=== PATIENT | female | born 1965 | race Caucasian/White ===

== ENCOUNTER 2017-04-25 19:53 | Inpatient (IN) | payer MEDICAID ==
--- NOTE | 2017-04-25 21:27 | ED ---
General Adult HPI - General Chief complaint: Psychiatric Symptoms Stated complaint: Mental Health Time Seen by Provider: 04/25/17 20:25 Source: police, RN notes reviewed, old records reviewed Mode of arrival: ambulatory Limitations: no limitations - History of Present Illness Initial comments: This is a 52-year-old female here for evaluation of mental health. Patient brought in under petition for psychiatric evaluation. - Related Data Home Medications Medication Instructions Recorded Confirmed Ibuprofen [Motrin] 200 - 400 mg PO Q6HR PRN 04/25/17 04/25/17 Metoprolol Succinate (ER) [Toprol 50 mg PO DAILY 04/25/17 04/25/17 XL] Previous Rx's Medication Instructions Recorded Melatonin 5 mg PO HS #30 tab 04/27/17 PARoxetine [Paxil] 10 mg PO DAILY #14 tab 04/27/17 Allergies Allergy/AdvReac Type Severity Reaction Status Date / Time clarithromycin [From Biaxin] Allergy Rash/Hives Verified 04/25/17 20:58 albuterol AdvReac AGITATION Verified 04/25/17 20:58 fluoxetine [From Prozac] AdvReac AGITATION Verified 04/25/17 20:58 nifedipine [From Procardia] AdvReac tachycardia Verified 04/25/17 20:58 Review of Systems ROS Statement: Those systems with pertinent positive or pertinent negative responses have been documented in the HPI. ROS Other: All systems not noted in ROS Statement are negative. Past Medical History Additional Past Medical History / Comment(s): tachycardia History of Any Multi-Drug Resistant Organisms: None Reported Past Surgical History: Section, Hysterectomy Past Psychological History: Anxiety Smoking Status: Current some day smoker Past Alcohol Use History: Occasional Past Drug Use History: None Reported - Past Family History Father Additional Family Medical History / Comment(s): Father at age 63 due to metastatic lung cancer. Mother Additional Family Medical History / Comment(s): Mother at age 85 with history of diabetes, coronary artery disease, Alzheimer's dementia. Brother(s) Additional Family Medical History / Comment(s): Patient has 4 brothers with history of hypothyroidism, diabetes and osteoarthritis. Sister(s) Additional Family Medical History / Comment(s): Patient has one sister with history of diabetes. Patient has 1 son and 1 daughter with no major medical problems. General Exam Limitations: no limitations General appearance: alert, in no apparent distress Head exam: Present: atraumatic, normocephalic, normal inspection Eye exam: Present: normal appearance, PERRL, EOMI. Absent: scleral icterus, conjunctival injection, periorbital swelling ENT exam: Present: normal exam, mucous membranes moist Neck exam: Present: normal inspection. Absent: tenderness, meningismus, lymphadenopathy Respiratory exam: Present: normal lung sounds bilaterally. Absent: respiratory distress, wheezes, rales, rhonchi, stridor Cardiovascular Exam: Present: regular rate, normal rhythm, normal heart sounds. Absent: systolic murmur, diastolic murmur, rubs, gallop, clicks GI/Abdominal exam: Present: soft, normal bowel sounds. Absent: distended, tenderness, guarding, rebound, rigid Extremities exam: Present: normal inspection, full ROM, normal capillary refill. Absent: tenderness, pedal edema, joint swelling, calf tenderness Back exam: Present: normal inspection Neurological exam: Present: alert, oriented X3, CN II-XII intact Psychiatric exam: Present: normal affect, normal mood Skin exam: Present: warm, dry, intact, normal color. Absent: rash Course Vital Signs 04/25/17 20:12 Temperature 99.3 F Pulse Rate 88 Respiratory 18 Rate Blood Pressure 107/73 O2 Sat by Pulse 99 Oximetry - Reevaluation(s) Reevaluation #1: 04/25/17 21:26 Patient is medically clear for psychiatric evaluation Medical Decision Making - Medical Decision Making 52 female ER for evaluation. Patient brought in for evaluation of psychiatric disease, patient will be admitted for psychiatric evaluation and treatment - Lab Data Result diagrams: 04/26/17 11:02 04/26/17 11:02 Lab Results 04/25/17 Range/Units 20:52 Urine Opiates Screen Not Detected (NotDetected) Ur Oxycodone Screen Not Detected (NotDetected) Urine Methadone Screen Not Detected (NotDetected) Ur Propoxyphene Screen Not Detected (NotDetected) Ur Barbiturates Screen Not Detected (NotDetected) U Tricyclic Antidepress Not Detected (NotDetected) Ur Phencyclidine Scrn Not Detected (NotDetected) Ur Amphetamines Screen Not Detected (NotDetected) U Methamphetamines Scrn Not Detected (NotDetected) U Benzodiazepines Scrn Not Detected (NotDetected) Urine Cocaine Screen Not Detected (NotDetected) U Marijuana (THC) Screen Not Detected (NotDetected) Disposition Clinical Impression: Acute psychosis Disposition: TRANSFER TO PSYCH HOSP/UNIT Condition: Stable
[2017-04-26] MEDS ORDERED: ZIPRASIDONE 20 MG VIAL IM STA (00:44)
[2017-04-26] MEDS ORDERED: LORazepam 1 MG TAB PO PRN (02:23)
[2017-04-26] MEDS ORDERED: ACETAMINOPHEN TAB 325 MG TAB PO PRN (02:23)
[2017-04-26] MEDS ORDERED: ZIPRASIDONE 20 MG VIAL IM PRN (02:23)
[2017-04-26] MEDS ORDERED: MAGNESIUM HYDROXIDE 2,400 MG/10 ML CUP PO PRN (02:23)
[2017-04-26] MEDS ORDERED: MAG HYDROX/AL HYDROX/SIMETH 30 ML CUP PO PRN (02:23)
[2017-04-26] MEDS ORDERED: IBUPROFEN 400 MG TAB PO PRN (02:54)
[2017-04-26] MEDS ORDERED: LORazepam 2 MG/ML SYRINGE IM PRN (03:04)
[2017-04-26] MEDS ORDERED: METOPROLOL SUCCINATE (ER) 50 MG TAB.ER.24H PO SCH (09:00)
[2017-04-26] MEDS: NICOTINE 14MG/24HR PATCH TRANSDERM SCH (09:18)
[2017-04-26] MEDS: METOPROLOL SUCCINATE (ER) 50 MG TAB.ER.24H PO SCH (09:19)
[2017-04-26] MEDS: PARoxetine 10 MG TAB PO SCH (10:41)
[2017-04-26 11:12] LABS: Basophils % (A) 0 %; CH 31.9; CHCM 35.3; Eosinophils # (A) 0.1 k/uL (0-0.7); Eosinophils % (A) 1 %; HCT 41.1 % (34.0-46.0); HDW 2.67; HGB 14.5 gm/dL (11.4-16.0); Luc # (Auto) 0.17; Luc % (Auto) 2; Lymphocytes # (A) 1.9 k/uL (1.0-4.8); Lymphocytes % (A) 25 %; MCH 31.9 pg (25.0-35.0); MCHC 35.2 g/dL (31.0-37.0); MCV 90.6 fL (80.0-100.0); Mean Platelet Volume 7.6; Monocytes # (A) 0.4 k/uL (0-1.0); Monocytes % (A) 5 %; Neutrophils % (A) 67 %; RBC 4.54 m/uL (3.80-5.40); RDW 12.7 % (11.5-15.5); WBC 7.6 k/uL (3.8-10.6); WBC (Perox) 7.74
[2017-04-26 11:39] LABS: ALT 46 U/L (9-52); AST 24 U/L (14-36); Alkaline Phosphatase 103 U/L (38-126); Anion Gap 7 mmol/L; Blood Urea Nitrogen 10 mg/dL (7-17); Calcium 9.1 mg/dL (8.4-10.2); Carbon Dioxide 26 mmol/L (22-30); Chloride 111 mmol/L (98-107); Glucose 83 mg/dL (74-99); Non-African American GFR(MDRD) >60 (>60 ml/min/1.73 sqM); Potassium 4.1 mmol/L (3.5-5.1); Sodium 144 mmol/L (137-145); Total Bilirubin 0.8 mg/dL (0.2-1.3); Total Protein 6.3 g/dL (6.3-8.2)
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
--- NOTE | 2017-04-26 15:33 | P.MDCNMH ---
History of Present Illness H&P Date: 04/26/17 Chief Complaint: Medical management This is a 52-year-old female patient of Dr. Louis with past medical history of tachycardia, tobacco use and dependence, anxiety and depression. Patient states that she was depressed with suicidal ideation. She has had a previous hospitalization on the mental health unit 5-6 years ago. She has not been on any medications recently and does not see a psychiatrist or counselor. Patient came into [facility] emergency center for evaluation. TSH 2.090. Urine drug screen was negative. Patient was admitted to the mental health unit. EKG ordered. Review of Systems All systems: negative Constitutional: Denies chills, Denies fever Eyes: denies blurred vision, denies pain Ears, nose, mouth and throat: Denies headache, Denies sore throat Cardiovascular: Denies chest pain, Denies shortness of breath Respiratory: Denies cough Gastrointestinal: Denies abdominal pain, Denies diarrhea, Denies nausea, Denies vomiting Genitourinary: Denies dysuria, Denies hematuria Musculoskeletal: Denies myalgias Integumentary: Denies pruritus, Denies rash Neurological: Denies numbness, Denies weakness Psychiatric: Reports depression, Reports hopelessness, Reports suicidal ideation , Denies anxiety Endocrine: Denies fatigue, Denies weight change Past Medical History Additional Past Medical History / Comment(s): tachycardia History of Any Multi-Drug Resistant Organisms: None Reported Past Surgical History: Section, Cholecystectomy, Hysterectomy Past Psychological History: Anxiety Smoking Status: Current some day smoker Past Alcohol Use History: Occasional Additional Past Alcohol Use History / Comment(s): Patient is a smoker of half pack per day since she was 12 years of age. She denies any medical marijuana, marijuana, street drug use. She drinks alcohol occasionally. 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 Past Drug Use History: None Reported - Past Family History Father Additional Family Medical History / Comment(s): Father at age 63 due to metastatic lung cancer. Mother Additional Family Medical History / Comment(s): Mother at age 85 with history of diabetes, coronary artery disease, Alzheimer's dementia. Brother(s) Additional Family Medical History / Comment(s): Patient has 4 brothers with history of hypothyroidism, diabetes and osteoarthritis. Sister(s) Additional Family Medical History / Comment(s): Patient has one sister with history of diabetes. Patient has 1 son and 1 daughter with no major medical problems. Medications and Allergies Home Medications Medication Instructions Recorded Confirmed Type Ibuprofen [Motrin] 200 - 400 mg PO Q6HR PRN 04/25/17 04/25/17 History Metoprolol Succinate (ER) [Toprol 50 mg PO DAILY 04/25/17 04/25/17 History Xl] Allergies Allergy/AdvReac Type Severity Reaction Status Date / Time clarithromycin [From Biaxin] Allergy Rash/Hives Verified 04/25/17 20:58 albuterol AdvReac AGITATION Verified 04/25/17 20:58 fluoxetine [From Prozac] AdvReac AGITATION Verified 04/25/17 20:58 nifedipine [From Procardia] AdvReac tachycardia Verified 04/25/17 20:58 Physical Exam Vitals: Vital Signs Temp Pulse Pulse Resp BP BP Pulse Ox 04/26/17 09:20 71 16 110/64 04/26/17 04:31 97.6 F 73 16 100/67 04/25/17 20:12 99.3 F 88 18 107/73 99 Intake and Output 04/25/17 04/26/17 04/26/17 22:59 06:59 14:59 Other: Weight 68.039 kg Gen: This is a 52-year-old female. She is cooperative and appears to be in no acute distress. HEENT: Head is atraumatic, normocephalic. Pupils equal, round. Sclerae is anicteric. NECK: Supple. No JVD. No lymphadenopathy. No thyromegaly. LUNGS: Clear to auscultation. No wheezes or rhonchi. No intercostal retractions. HEART: Regular rate and rhythm. No murmur. ABDOMEN: Soft. Bowel sounds are present. No masses. No tenderness. EXTREMITIES: No pedal edema. No calf tenderness. NEUROLOGICAL: Patient is awake, alert and oriented x3. Cranial nerves 2 through 12 are grossly intact. Cranial Nerve Examination - Cranial Nerves Cranial Nerve II- Optic: Intact Cranial Nerve III- Oculomotor: Intact Cranial Nerve IV- Trochlear: Intact Cranial Nerve V- Trigeminal: Intact Cranial Nerve - Abducens: Intact Cranial Nerve VII- Facial: Intact Cranial Nerve VIII- Auditory: Intact Cranial Nerve IX- Glossopharyngeal: Intact Cranial Nerve X- Vagus: Intact Cranial Nerve XI- Accessory: Intact Cranial Nerve XII- Hypoglossal: Intact Results CBC & Chem 7: 04/26/17 11:02 04/26/17 11:02 Labs: Abnormal Lab Results - Last 24 Hours (Table) 04/26/17 Range/Units 11:02 Chloride 111 H (98-107) mmol/L Assessment and Plan Plan: 1. Recurrent depression. Patient admitted to the mental health unit. Continue current plan per psychiatrist. 2. Tobacco use and dependence. Continue nicotine patch. 3. History of tachycardia. Continue Toprol-XL 50 mg daily. Impression and plan of care have been directed as dictated by the signing physician. Carolyne Stahl nurse practitioner acting as scribe for signing physician.
[2017-04-26] MEDS ORDERED: MELATONIN 5 MG TABLET PO SCH (21:00)
[2017-04-27 07:14] VITALS: TEMP 98
[2017-04-27] MEDS: NICOTINE 14MG/24HR PATCH TRANSDERM SCH (09:09)
[2017-04-27] MEDS: METOPROLOL SUCCINATE (ER) 50 MG TAB.ER.24H PO SCH (09:10)
[2017-04-27] MEDS: PARoxetine 10 MG TAB PO SCH (09:11)
[2017-04-27 09:13] VITALS: BP 118/68; PULSE 73; RESP 18
--- NOTE | 2017-04-27 11:56 | P.DS ---
Providers Date of admission: 04/26/17 02:11 Expected date of discharge: 04/27/17 Attending physician: Gisele Penn MD Consults: 04/26/17 02:23 Consult Physician Routine Consulting Provider: Ben Delgado Reason/Comments: H&P, with medical followup Do you want consulting provider notified?: Yes, Notify in am Primary care physician: [facility] Course: Discharge Diagnoses: Persistent depressive disorder with intermittent major depressive episodes with current episode of depression, panic disorder Reason for Admission: Patient is a 52-year-old female who was brought to the hospital by police on a petition when her friend called the police after the patient was making statements that she "can't do this anymore" and had a knife out. Patient stated that she was not making suicidal statements but upset and frustrated with being told that her friends didn't want to be around her anymore because she was so bitter and angry all of the time. Patient states that she feels guilty about her mother's , and when her dog recently became ill she began to feel increasingly depressed and upset. Patient is able to endorse depressive symptoms for most of her life with episodes of major depression during her life as well. Patient had been treated in the past with Paxil for her depression and panic disorder but she discontinued these medications after 5 years. Patient has not received any treatment since that time, this was in her 20s and has been having episodes of depression since. Patient reported that her panic disorder was not a problem currently as she was able to control her episodes of panic attacks. Hospital Course: Patient was admitted and signed a voluntary admission form and initially was quite reluctant to do so and did not understand why she needed to be here, she was placed on routine observations, routine laboratory studies were ordered and a medical consultation was requested. Patient was also ordered group and activity therapy. Patient was continued on her metipranolol for her history of tachycardia. Patient was able to verbalize that she has felt guilty about her mother's and feels that she did not take her mother to the hospital as soon as she injured her ankle when she was at home, patient states that she has long felt depressed for most of her life, has a negative outlook on things and has tried to use her friends as sounding boards and for assistance in coping with her mother's . Patient was attending groups and activities and was able to discuss her negative outlook, and began to understand why her friends are having difficulty spending time with her. Patient was restarted on Paxil as she reported a good response, Piotr 10 mg every morning was started and the patient reported no side effects from the medication. Patient reported she was ready to return home and back to work, was not expressing any suicidal ideation and was open to seeking counseling and therapy. Patient reports that her primary care physician prescribed melatonin for her and she did think that it assisted with her sleep and would like to continue taking this upon discharge. Discharge Mental Status:Appearance/Attitude: Patient was neatly and appropriately dressed, she made good eye contact and was cooperative. Behavior: Patient did not display any psychomotor agitation or retardation. Speech/Language: Patient's speech was spontaneous and of normal volume and rhythm and she was coherent. Thought Process: Patient was goal-directed without evidence of circumstantial or tangential thought, no flight of ideas or loose associations were elicited. Thought Content: Patient denied any auditory or visual hallucinations and no paranoid ideation or delusional ideation was elicited. Patient was better able to understand her friend's comments and did acknowledge that she had a negative outlook and didn't verbalize a lot of complaints about her lack of money and not being able to do things. Patient reported that she was more open to counseling to assist her in coping with her mother's . Patient reported that she was sleeping and eating well. She stated she was not having any panic attacks, reported no side effects from the medication. Suicidal/Homicidal Ideation: Patient denied any current suicidal or homicidal ideation. Sensorium/Cognition: Patient was alert and oriented to person, place, and time and her memory is grossly intact. Mood/Affect: Patient's mood remains slightly depressed and her affect is appropriate. Insight/Judgement: Patient's insight and judgment are intact. Laboratory Last Values WBC 7.6 k/uL (3.8-10.6) 04/26/17 11:02 RBC 4.54 m/uL (3.80-5.40) 04/26/17 11:02 Hgb 14.5 gm/dL (11.4-16.0) 04/26/17 11:02 Hct 41.1 % (34.0-46.0) 04/26/17 11:02 MCV 90.6 fL (80.0-100.0) 04/26/17 11:02 MCH 31.9 pg (25.0-35.0) 04/26/17 11:02 MCHC 35.2 g/dL (31.0-37.0) 04/26/17 11:02 RDW 12.7 % (11.5-15.5) 04/26/17 11:02 Plt Count 223 k/uL (150-450) 04/26/17 11:02 Neutrophils % 67 % 04/26/17 11:02 Lymphocytes % 25 % 04/26/17 11:02 Monocytes % 5 % 04/26/17 11:02 Eosinophils % 1 % 04/26/17 11:02 Basophils % 0 % 04/26/17 11:02 Neutrophils # 5.0 k/uL (1.3-7.7) 04/26/17 11:02 Lymphocytes # 1.9 k/uL (1.0-4.8) 04/26/17 11:02 Monocytes # 0.4 k/uL (0-1.0) 04/26/17 11:02 Eosinophils # 0.1 k/uL (0-0.7) 04/26/17 11:02 Basophils # 0.0 k/uL (0-0.2) 04/26/17 11:02 Sodium 144 mmol/L (137-145) 04/26/17 11:02 Potassium 4.1 mmol/L (3.5-5.1) 04/26/17 11:02 Chloride 111 mmol/L (98-107) H 04/26/17 11:02 Carbon Dioxide 26 mmol/L (22-30) 04/26/17 11:02 Anion Gap 7 mmol/L 04/26/17 11:02 BUN 10 mg/dL (7-17) 04/26/17 11:02 Creatinine 0.69 mg/dL (0.52-1.04) 04/26/17 11:02 Est GFR (MDRD) Af Amer >60 (>60 ml/min/1.73 sqM) 04/26/17 11:02 Est GFR (MDRD) Non-Af >60 (>60 ml/min/1.73 sqM) 04/26/17 11:02 Glucose 83 mg/dL (74-99) 04/26/17 11:02 Calcium 9.1 mg/dL (8.4-10.2) 04/26/17 11:02 Total Bilirubin 0.8 mg/dL (0.2-1.3) 04/26/17 11:02 AST 24 U/L (14-36) 04/26/17 11:02 ALT 46 U/L (9-52) 04/26/17 11:02 Alkaline Phosphatase 103 U/L (38-126) 04/26/17 11:02 Total Protein 6.3 g/dL (6.3-8.2) 04/26/17 11:02 Albumin 3.9 g/dL (3.5-5.0) 04/26/17 11:02 TSH 2.090 mIU/L (0.465-4.680) 04/26/17 11:02 Urine Opiates Screen Not Detected (NotDetected) 04/25/17 20:52 Ur Oxycodone Screen Not Detected (NotDetected) 04/25/17 20:52 Urine Methadone Screen Not Detected (NotDetected) 04/25/17 20:52 Ur Propoxyphene Screen Not Detected (NotDetected) 04/25/17 20:52 Ur Barbiturates Screen Not Detected (NotDetected) 04/25/17 20:52 U Tricyclic Antidepress Not Detected (NotDetected) 04/25/17 20:52 Ur Phencyclidine Scrn Not Detected (NotDetected) 04/25/17 20:52 Ur Amphetamines Screen Not Detected (NotDetected) 04/25/17 20:52 U Methamphetamines Scrn Not Detected (NotDetected) 04/25/17 20:52 U Benzodiazepines Scrn Not Detected (NotDetected) 04/25/17 20:52 Urine Cocaine Screen Not Detected (NotDetected) 04/25/17 20:52 U Marijuana (THC) Screen Not Detected (NotDetected) 04/25/17 20:52 Risk Assessment: Patient's risk is low for self harm and she has no prior history of suicide attempts, is willing to attend outpatient therapy and take medication for her depression. 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 Patient will follow-up with [facility] counseling for continued medication management as well as counseling services. Patient will continue on Paxil 10 mg every morning and melatonin 5 mg at bedtime and prescriptions were sent to her pharmacy for these medications. Patient and I discussed good sleep hygiene, use of caffeine and the need for good nutrition and exercise. Patient was encouraged to avoid any alcohol. Patient Condition at Discharge: Stable Plan - Discharge Summary New Discharge Prescriptions: New Melatonin 5 mg PO HS #30 tab PARoxetine [Paxil] 10 mg PO DAILY #14 tab Continue Metoprolol Succinate (ER) [Toprol XL] 50 mg PO DAILY Ibuprofen [Motrin] 200 - 400 mg PO Q6HR PRN PRN Reason: Pain Discharge Medication List Ibuprofen [Motrin] 200 - 400 mg PO Q6HR PRN 04/25/17 [History] Metoprolol Succinate (ER) [Toprol XL] 50 mg PO DAILY 04/25/17 [History] Melatonin 5 mg PO HS #30 tab 04/27/17 [Rx] PARoxetine [Paxil] 10 mg PO DAILY #14 tab 04/27/17 [Rx] Follow up Appointment(s)/Referral(s): [facility] [Outside] - 04/30/17 1:00 pm (w/ Arlene Acosta. Patient must arrive at 12:30pm for paperwork) Rebecca Louis MD [Primary Care Provider] - 1-2 days
== END 2017-04-27 12:28 | disposition home or self-care (01) | DRG 881 ==
LOC: EC 19:53 → 3MHU 04-26 02:11
PROVIDERS: ADMIT Psychiatry & Neurology Psychiatry; ATTEND Psychiatry & Neurology Psychiatry
DX: F32.9 Major depressive disorder, single episode, unspecified (principal); R45.851 Suicidal ideations; F41.0 Panic disorder [episodic paroxysmal anxiety]; F17.200 Nicotine dependence, unspecified, uncomplicated; Z62.810 Personal history of physical and sexual abuse in childhood; Z79.899 Other long term (current) drug therapy; Z80.1 Family history of malignant neoplasm of trachea, bronchus and lung; Z82.0 Family history of epilepsy and other diseases of the nervous system; Z82.49 Family history of ischemic heart disease and other diseases of the circulatory system; Z83.3 Family history of diabetes mellitus
CPT/HCPCS: 80053; 80306; 82075; 84443; 85025; 93005

== ENCOUNTER 2021-03-24 06:28 | Observation (INO) | payer BC, OTHER ==
[2021-03-24 06:40] VITALS: TEMP 98.1
--- NOTE | 2021-03-24 06:56 | ED ---
General Adult HPI - General Source: patient, RN notes reviewed, old records reviewed Mode of arrival: wheelchair <Timmy Ramírez - Last Filed: 03/24/21 08:25> <Arlene Lobato - Last Filed: 03/29/21 00:17> - General Chief complaint: Chest Pain Stated complaint: Chest Pain Time Seen by Provider: 03/24/21 06:34 - History of Present Illness Initial comments: 56-year-old female with a past medical history of tachycardia on metoprolol presents to the emergency room for a chief complaint of chest pain. Patient reports that she had sharp chest pain starting last night about 8 hours prior to arrival. Patient describes the pain as a sharp pain. She does admit that it radiates to her back. Denies it radiating to her arms. Patient denies any alleviating factors. States it worsened when she sat up. Patient denies nausea, shortness of breath, or diaphoresis. Patient does have a [id number] smoking history.Patient has no other complaints at this time including shortness of breath, abdominal pain, nausea or vomiting, headache, or visual changes. (Timmy Ramírez) - Related Data Home Medications Medication Instructions Recorded Confirmed Ibuprofen [Motrin] 200 - 400 mg PO Q6HR PRN 04/25/17 03/24/21 Metoprolol Succinate (ER) [Toprol 50 mg PO DAILY 04/25/17 03/24/21 XL] Previous Rx's Medication Instructions Recorded Omeprazole 40 mg PO AC-BRKFST #30 capsule. 03/24/21 Allergies Allergy/AdvReac Type Severity Reaction Status Date / Time clarithromycin [From Biaxin] Allergy Rash/Hives Verified 03/24/21 07:08 albuterol AdvReac AGITATION Verified 03/24/21 07:08 fluoxetine [From Prozac] AdvReac AGITATION Verified 03/24/21 07:08 nifedipine [From Procardia] AdvReac tachycardia Verified 03/24/21 07:08 Review of Systems ROS Other: All systems not noted in ROS Statement are negative. <Timmy Ramírez - Last Filed: 03/24/21 08:25> ROS Other: All systems not noted in ROS Statement are negative. <Arlene Lobato - Last Filed: 03/29/21 00:17> ROS Statement: Those systems with pertinent positive or pertinent negative responses have been documented in the HPI. Past Medical History Additional Past Medical History / Comment(s): tachycardia History of Any Multi-Drug Resistant Organisms: None Reported Past Surgical History: Section, Hysterectomy Past Psychological History: Anxiety Smoking Status: Current every day smoker Past Alcohol Use History: Occasional Past Drug Use History: None Reported - Past Family History Father Additional Family Medical History / Comment(s): Father at age 63 due to metastatic lung cancer. Mother Additional Family Medical History / Comment(s): Mother at age 85 with history of diabetes, coronary artery disease, Alzheimer's dementia. Brother(s) Additional Family Medical History / Comment(s): Patient has 4 brothers with history of hypothyroidism, diabetes and osteoarthritis. Sister(s) Additional Family Medical History / Comment(s): Patient has one sister with history of diabetes. Patient has 1 son and 1 daughter with no major medical problems. <Timmy Ramírez P - Last Filed: 03/24/21 08:25> General Exam General appearance: alert, in no apparent distress Head exam: Present: atraumatic, normocephalic, normal inspection Eye exam: Present: normal appearance, PERRL, EOMI. Absent: scleral icterus, conjunctival injection, periorbital swelling ENT exam: Present: normal exam, mucous membranes moist Neck exam: Present: normal inspection. Absent: tenderness, meningismus, lymphadenopathy Respiratory exam: Present: normal lung sounds bilaterally. Absent: respiratory distress, wheezes, rales, rhonchi, stridor Cardiovascular Exam: Present: regular rate, normal rhythm, normal heart sounds. Absent: systolic murmur, diastolic murmur, rubs, gallop, clicks GI/Abdominal exam: Present: soft, normal bowel sounds. Absent: distended, tenderness, guarding, rebound, rigid Neurological exam: Present: alert <Timmy Ramírez P - Last Filed: 03/24/21 08:25> Course Vital Signs 03/24/21 03/24/21 03/24/21 06:37 08:37 10:43 Temperature 98.1 F Pulse Rate 94 71 68 Respiratory 18 16 18 Rate Blood Pressure 130/88 117/73 104/66 O2 Sat by Pulse 98 97 97 Oximetry 03/24/21 03/24/21 12:34 14:00 Temperature Pulse Rate 64 86 Respiratory 18 18 Rate Blood Pressure 104/66 110/62 O2 Sat by Pulse 98 98 Oximetry EKG Findings - EKG Comments: EKG Findings:: NSR, vent rate 87, pr int 156, qtc 459 <Timmy Ramírez - Last Filed: 03/24/21 08:25> Medical Decision Making - Lab Data Result diagrams: 03/24/21 06:52 03/24/21 06:52 <Timmy Ramírez - Last Filed: 03/24/21 08:25> - Lab Data Result diagrams: 03/24/21 06:52 03/24/21 06:52 <Arlene Lobato - Last Filed: 03/29/21 00:17> - Medical Decision Making Vitals Are stable. Patient is well-appearing. EKG shows a normal sinus rhythm, nonischemic. CBC CMP unremarkable. Troponin and d-dimer are negative. Chest x-ray shows no acute cardiopulmonary process. Patient has a heart score of 3. Given no previous cardiac workup and a smoking history patient will be admitted for cardiology consultation and repeat troponin. (Timmy Ramírez) I was available for consultation in the emergency department. The history and physical exam were done by the midlevel provider. I was consulted for this patients care. I reviewed the case with the midlevel provider and based on their presentation of the patient, I agree with the assessment, medical decision making and plan of care as documented. Chart was dictated using [employer] dictation software. Attempts were made to correct any dictation errors however some typographical errors may persist. (Arlene Lobato) - Lab Data Lab Results 03/24/21 03/24/21 03/24/21 Range/Units 06:52 06:52 06:52 WBC 7.9 (3.8-10.6) k/uL RBC 4.39 (3.80-5.40) m/uL Hgb 14.5 (11.4-16.0) gm/dL Hct 40.0 (34.0-46.0) % MCV 91.0 (80.0-100.0) fL MCH 33.0 (25.0-35.0) pg MCHC 36.2 (31.0-37.0) g/dL RDW 12.3 (11.5-15.5) % Plt Count 230 (150-450) k/uL MPV 7.4 Neutrophils % 57 % Lymphocytes % 34 % Monocytes % 6 % Eosinophils % 2 % Basophils % 0 % Neutrophils # 4.5 (1.3-7.7) k/uL Lymphocytes # 2.7 (1.0-4.8) k/uL Monocytes # 0.5 (0-1.0) k/uL Eosinophils # 0.1 (0-0.7) k/uL Basophils # 0.0 (0-0.2) k/uL PT 9.5 (9.0-12.0) sec INR 0.9 (<1.2) APTT 23.4 (22.0-30.0) sec D-Dimer 0.27 (<0.60) mg/L FEU Sodium 141 (137-145) mmol/L Potassium 3.7 (3.5-5.1) mmol/L Chloride 110 H (98-107) mmol/L Carbon Dioxide 23 (22-30) mmol/L Anion Gap 8 mmol/L BUN 12 (7-17) mg/dL Creatinine 0.72 (0.52-1.04) mg/dL Est GFR (CKD-EPI)AfAm >90 (>60 ml/min/1.73 sqM) Est GFR (CKD-EPI)NonAf >90 (>60 ml/min/1.73 sqM) Glucose 155 H (74-99) mg/dL Calcium 9.5 (8.4-10.2) mg/dL Magnesium 1.9 (1.6-2.3) mg/dL Total Bilirubin 0.6 (0.2-1.3) mg/dL AST 25 (14-36) U/L ALT 24 (4-34) U/L Alkaline Phosphatase 93 (38-126) U/L Troponin I (0.000-0.034) ng/mL Total Protein 6.3 (6.3-8.2) g/dL Albumin 4.0 (3.5-5.0) g/dL Lipase 64 (23-300) U/L 03/24/21 Range/Units 06:52 WBC (3.8-10.6) k/uL RBC (3.80-5.40) m/uL Hgb (11.4-16.0) gm/dL Hct (34.0-46.0) % MCV (80.0-100.0) fL MCH (25.0-35.0) pg MCHC (31.0-37.0) g/dL RDW (11.5-15.5) % Plt Count (150-450) k/uL MPV Neutrophils % % Lymphocytes % % Monocytes % % Eosinophils % % Basophils % % Neutrophils # (1.3-7.7) k/uL Lymphocytes # (1.0-4.8) k/uL Monocytes # (0-1.0) k/uL Eosinophils # (0-0.7) k/uL Basophils # (0-0.2) k/uL PT (9.0-12.0) sec INR (<1.2) APTT (22.0-30.0) sec D-Dimer (<0.60) mg/L FEU Sodium (137-145) mmol/L Potassium (3.5-5.1) mmol/L Chloride (98-107) mmol/L Carbon Dioxide (22-30) mmol/L Anion Gap mmol/L BUN (7-17) mg/dL Creatinine (0.52-1.04) mg/dL Est GFR (CKD-EPI)AfAm (>60 ml/min/1.73 sqM) Est GFR (CKD-EPI)NonAf (>60 ml/min/1.73 sqM) Glucose (74-99) mg/dL Calcium (8.4-10.2) mg/dL Magnesium (1.6-2.3) mg/dL Total Bilirubin (0.2-1.3) mg/dL AST (14-36) U/L ALT (4-34) U/L Alkaline Phosphatase (38-126) U/L Troponin I <0.012 (0.000-0.034) ng/mL Total Protein (6.3-8.2) g/dL Albumin (3.5-5.0) g/dL Lipase (23-300) U/L Disposition Is patient prescribed a controlled substance at d/c from ED?: No Time of Disposition: 08:26 <Timmy Ramírez P - Last Filed: 03/24/21 08:25> <Arlene Lobato A - Last Filed: 03/29/21 00:17> Clinical Impression: Chest pain Disposition: ADMITTED IP TO THIS HOSP
[2021-03-24 07:05] LABS: Basophils % (A) 0 %; Eosinophils # (A) 0.1 k/uL (0-0.7); Eosinophils % (A) 2 %; HGB 14.5 gm/dL (11.4-16.0); Lymphocytes # (A) 2.7 k/uL (1.0-4.8); Lymphocytes % (A) 34 %; MCHC 36.2 g/dL (31.0-37.0); Mean Platelet Volume 7.4; Monocytes # (A) 0.5 k/uL (0-1.0); Monocytes % (A) 6 %; Neutrophils # (A) 4.5 k/uL (1.3-7.7); Neutrophils % (A) 57 %; Platelet Count 230 k/uL (150-450); RBC 4.39 m/uL (3.80-5.40); RDW 12.3 % (11.5-15.5); WBC 7.9 k/uL (3.8-10.6)
--- NOTE | 2021-03-24 07:06 | XR ---
EXAMINATION TYPE: XR chest 2V DATE OF EXAM: 03/24/2021 COMPARISON: 11/20/2015 HISTORY: Chest pain TECHNIQUE: Frontal and lateral views of the chest are obtained. FINDINGS: There is no focal air space opacity, pleural effusion, or pneumothorax seen. The cardiac silhouette size is within normal limits. The osseous structures are intact. IMPRESSION: No acute cardiopulmonary process.
[2021-03-24 07:25] LABS: ALT 24 U/L (4-34); AST 25 U/L (14-36); African American GFR (CKD) >90 (>60 ml/min/1.73 sqM); Alkaline Phosphatase 93 U/L (38-126); Anion Gap 8 mmol/L; Blood Urea Nitrogen 12 mg/dL (7-17); Calcium 9.5 mg/dL (8.4-10.2); Carbon Dioxide 23 mmol/L (22-30); Chloride 110 mmol/L (98-107); Glucose 155 mg/dL (74-99); Lipase 64 U/L (23-300); Magnesium 1.9 mg/dL (1.6-2.3); Non-African American GFR(CKD) >90 (>60 ml/min/1.73 sqM); Potassium 3.7 mmol/L (3.5-5.1); Sodium 141 mmol/L (137-145); Total Bilirubin 0.6 mg/dL (0.2-1.3); Total Protein 6.3 g/dL (6.3-8.2)
[2021-03-24 07:37] LABS: D-Dimer 0.27 mg/L FEU (<0.60); INR 0.9 (<1.2); Partial Thromboplastin Time 23.4 sec (22.0-30.0); Prothrombin Time 9.5 sec (9.0-12.0)
[2021-03-24] MEDS ORDERED: MORPHINE SULFATE 2 MG/ML SYRINGE IVP PRN (08:31)
[2021-03-24] MEDS ORDERED: NICOTINE 21MG/24HR PATCH TRANSDERM STA (08:40)
[2021-03-24] MEDS ORDERED: PANTOPRAZOLE 40 MG/10 ML VIAL IVP SCH (09:45)
[2021-03-24 10:44] VITALS: RESP 18
[2021-03-24] MEDS ORDERED: IBUPROFEN 400 MG TAB PO STA (13:17)
[2021-03-24 14:01] VITALS: BP 110/62; PULSE 86
--- NOTE | 2021-03-24 14:01 | P.CRDCN ---
History of Present Illness History of present illness: HISTORY OF PRESENTING ILLNESS This is a pleasant 56-year-old female past medical history significant for tachycardia and chronic nicotine dependence. 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 We have been asked to see in consultation for chest pain. She states last night while laying in bed she developed a pain in the chest in the mid-sternal region. The pain is sharp and tight feeling with radiation to both shoulders, worse on the right. The pain was intermittent last night and exacerbated by movement in bed or specifically movement of her right arm. She was able to fall asleep. She woke up in the morning with ongoing pain worsening right shoulder ache. On exam the pain in the midsternal region is reproducible and radiates to the right anterior shoulder. She also has some reproducible discomfort in the middle upper back. On palpation she can reproduce the pain in the right shoulder as well. She denies shortness of breath, dizziness, nausea, vomiting or diaphoresis. EKG reveals sinus mechanism with no acute ST or T wave abnormalities noted. Chest x-ray is negative for an acute cardiopulmonary process. Laboratory data reviewed, CBC unremarkable, d-dimer 0.27, sodium 141, potassium 3.7, creatinine 0.72, magnesium 1.9, cardiac enzymes negative 3. Current daily cardiac medications include Toprol 50 mg daily. REVIEW OF SYSTEMS At the time of my exam: CONSTITUTIONAL: Denies fever or chills. CARDIOVASCULAR: Denies chest pain, shortness of breath, orthopnea, PND or palpitations. RESPIRATORY: Denies cough. GASTROINTESTINAL: Denies abdominal pain, diarrhea, constipation, nausea or vomi ting. MUSCULOSKELETAL: Reproducible midsternal chest pain that radiates to the back and the right shoulder. NEUROLOGIC: Denies numbness, tingling, headacbe or weakness. ENDOCRINE: Denies fatigue, weight change, polydipsia or polyurina. GENITOURINARY: Denies burning, hematuria or urgency with micturation. HEMATOLOGIC: Denies history of anemia or bleeding. PHYSICAL EXAMINATION Blood pressure 104/66 heart rate 64 afebrile and maintaining oxygen saturation on room air. CONSTITUTIONAL: No apparent distress. HEENT: Head is normocephalic. Pupils are equal, round. Sclerae anicteric. Mucous membranes of the mouth are moist. No JVD. No carotid bruit. CHEST EXAMINATION: Lungs are clear to auscultation. Positive chest wall tenderness is noted on palpation. HEART EXAMINATION: Regular rate and rhythm. S1, S2 heard. No murmurs, gallops or rub. ABDOMEN: Soft, nontender. Positive bowel sounds. EXTREMITIES: 2+ peripheral pulses, no lower extremity edema and no calf tenderness. NEUROLOGIC EXAMINATION: Patient is awake, alert and oriented x3. ASSESSMENT Chest pain, costochondritis Chronic nicotine dependence PLAN Pain is atypical for angina, clearly reproducible on palpation. Patient verbal izes that she has had a stiff neck recently and is possibly favoring the right side. No exertional chest pain. An acute coronary event has been ruled out. Recommend anti-inflammatory pain relief and discharge home. Nurse Practitioner note has been reviewed, I agree with a documented findings an d plan of care. Patient was seen and examined. Past Medical History Additional Past Medical History / Comment(s): tachycardia History of Any Multi-Drug Resistant Organisms: None Reported Past Surgical History: Section, Hysterectomy Past Psychological History: Anxiety Smoking Status: Current every day smoker Past Alcohol Use History: Occasional Past Drug Use History: None Reported - Past Family History Father Additional Family Medical History / Comment(s): Father at age 63 due to metastatic lung cancer. Mother Additional Family Medical History / Comment(s): Mother at age 85 with history of diabetes, coronary artery disease, Alzheimer's dementia. Brother(s) Additional Family Medical History / Comment(s): Patient has 4 brothers with history of hypothyroidism, diabetes and osteoarthritis. Sister(s) Additional Family Medical History / Comment(s): Patient has one sister with history of diabetes. Patient has 1 son and 1 daughter with no major medical problems. Medications and Allergies Home Medications Medication Instructions Recorded Confirmed Type Ibuprofen [Motrin] 200 - 400 mg PO Q6HR PRN 04/25/17 03/24/21 History Metoprolol Succinate (ER) [Toprol 50 mg PO DAILY 04/25/17 03/24/21 History XL] Allergies Allergy/AdvReac Type Severity Reaction Status Date / Time clarithromycin [From Biaxin] Allergy Rash/Hives Verified 03/24/21 07:08 albuterol AdvReac AGITATION Verified 03/24/21 07:08 fluoxetine [From Prozac] AdvReac AGITATION Verified 03/24/21 07:08 nifedipine [From Procardia] AdvReac tachycardia Verified 03/24/21 07:08 Physical Exam Vitals: Vital Signs Temp Pulse Resp BP Pulse Ox 03/24/21 12:34 64 18 104/66 98 03/24/21 10:43 68 18 104/66 97 03/24/21 08:37 71 16 117/73 97 03/24/21 06:37 98.1 F 94 18 130/88 98 Intake and Output 03/23/21 03/24/21 03/24/21 22:59 06:59 14:59 Other: Weight 72.575 kg Results 03/24/21 06:52 03/24/21 06:52 Cardiac Enzymes 03/24/21 03/24/21 03/24/21 Range/Units 06:52 06:52 09:51 AST 25 (14-36) U/L Troponin I <0.012 <0.012 (0.000-0.034) ng/mL Coagulation 03/24/21 Range/Units 06:52 PT 9.5 (9.0-12.0) sec APTT 23.4 (22.0-30.0) sec CBC 03/24/21 Range/Units 06:52 WBC 7.9 (3.8-10.6) k/uL RBC 4.39 (3.80-5.40) m/uL Hgb 14.5 (11.4-16.0) gm/dL Hct 40.0 (34.0-46.0) % Plt Count 230 (150-450) k/uL Comprehensive Metabolic Panel 03/24/21 Range/Units 06:52 Sodium 141 (137-145) mmol/L Potassium 3.7 (3.5-5.1) mmol/L Chloride 110 H (98-107) mmol/L Carbon Dioxide 23 (22-30) mmol/L BUN 12 (7-17) mg/dL Creatinine 0.72 (0.52-1.04) mg/dL Glucose 155 H (74-99) mg/dL Calcium 9.5 (8.4-10.2) mg/dL AST 25 (14-36) U/L ALT 24 (4-34) U/L Alkaline Phosphatase 93 (38-126) U/L Total Protein 6.3 (6.3-8.2) g/dL Albumin 4.0 (3.5-5.0) g/dL Current Medications Generic Name Dose Route Start Last Admin Trade Name Freq PRN Reason Stop Dose Admin Aspirin 325 mg 03/25/21 09:00 Aspirin 325 Mg Tab PO DAILY BOBO Metoprolol Succinate 50 mg 03/25/21 09:00 Metoprolol Succinate (Er) 50 Mg Tab.Er.24h PO DAILY BOBO Morphine Sulfate 2 mg 03/24/21 08:31 Morphine Sulfate 2 Mg/Ml Syringe IVP Q4H PRN Pain Pantoprazole Sodium 40 mg 03/24/21 09:45 03/24/21 10:43 Pantoprazole 40 Mg/10 Ml Vial IVP 40 mg BID [facility] Administration Intake and Output 03/23/21 03/24/21 03/24/21 22:59 06:59 14:59 Other: Weight 72.575 kg 03/24/21 06:52 03/24/21 06:52
--- NOTE | 2021-03-24 16:05 | P.HPIM ---
History of Present Illness H&P Date: 03/24/21 (this document will serve as both H and P and discharge summary ) 56 years old female with past medical history of tachycardia and chronic nicotine dependence with history of IBS and deep daily degenerative disc disease of the neck and back, and with acute substernal chest pain that radiated to the back. The pain is sharp and tight and felt like radiating to both shoulders worse on the right. Pain got worse with movement in the bed.Vitals were reviewed temp 98.1 pulse 86 respiratory rate 18 blood pressure 110/62 labs are reviewed suggest hemoglobin of 14.5 WBC 7.9 platelet 230, INR 0.9 chloride 110 potassium 3.7 glucose 155 creatinine 0.72 troponin x3 - EKG suggestive of no ST or T wave changes. Cardiology evaluated the patient acute coronary syndrome r/out Review of Systems Constitutional: No fevers, chills and weight loss. HENT: Negative. Negative for hearing loss. Eyes: Negative. Respiratory: No cough, shortness of breath or hemoptysis. No sputum production and wheezing. Cardiovascular: positive for chest pain, no palpitations, orthopnea, claudication and PND. No swelling of feet Gastrointestinal: Negative for nausea, vomiting and melena. Genitourinary: Negative for urgency and frequency. Musculoskeletal: positive for myalgias and neck pain. Skin: Negative. Negative for itching and rash. Neurological: Negative for headaches. positive fro dizziness Psychiatric/Behavioral: Negative for depression Past Medical History Past Medical History: GERD/Reflux, Osteoarthritis (OA), Supraventricular Tachycardia (SVT) Additional Past Medical History / Comment(s): tachycardia History of Any Multi-Drug Resistant Organisms: None Reported Past Surgical History: Section, Hysterectomy Past Psychological History: Anxiety Smoking Status: Current every day smoker Past Alcohol Use History: Occasional Past Drug Use History: None Reported - Past Family History Father Additional Family Medical History / Comment(s): Father at age 63 due to metastatic lung cancer. Mother Additional Family Medical History / Comment(s): Mother at age 85 with history of diabetes, coronary artery disease, Alzheimer's dementia. Brother(s) Additional Family Medical History / Comment(s): Patient has 4 brothers with history of hypothyroidism, diabetes and osteoarthritis. Sister(s) Additional Family Medical History / Comment(s): Patient has one sister with history of diabetes. Patient has 1 son and 1 daughter with no major medical problems. Medications and Allergies Home Medications Medication Instructions Recorded Confirmed Type Ibuprofen [Motrin] 200 - 400 mg PO Q6HR PRN 04/25/17 03/24/21 History Metoprolol Succinate (ER) [Toprol 50 mg PO DAILY 04/25/17 03/24/21 History XL] Omeprazole 40 mg PO AC-BRKFST #30 capsule. 03/24/21 Rx Allergies Allergy/AdvReac Type Severity Reaction Status Date / Time clarithromycin [From Biaxin] Allergy Rash/Hives Verified 03/24/21 07:08 albuterol AdvReac AGITATION Verified 03/24/21 07:08 fluoxetine [From Prozac] AdvReac AGITATION Verified 03/24/21 07:08 nifedipine [From Procardia] AdvReac tachycardia Verified 03/24/21 07:08 Physical Exam Vitals: Vital Signs Temp Pulse Resp BP Pulse Ox 03/24/21 10:43 68 18 104/66 97 03/24/21 08:37 71 16 117/73 97 03/24/21 06:37 98.1 F 94 18 130/88 98 Intake and Output 03/23/21 03/24/21 03/24/21 22:59 06:59 14:59 Other: Weight 72.575 kg CONSTITUTIONAL: Patient appears comfortable in no apparent distress. NECK: No JVD or lymph node enlargement. HEET: Unremarkable, conjunctivae/corneas clear. Sclera anicteric. Oral cavity no lesions. RESPIRATORY: Clear to auscultation bilaterally. CARDIOVASCULAR: Regular rate and rhythm.chest pain eproducable at the anterior wall GASTROINTESTINAL: soft, tender epigastric area , no organomegaly. Bowel sounds are positive. PSYCH: Denies any depression or anxiety. SKIN: No rashes NEUROLOGICAL: alert, oriented x 3, no focal deficits noted. Results CBC & Chem 7: 03/24/21 06:52 03/24/21 06:52 Labs: Abnormal Lab Results - Last 24 Hours (Table) 03/24/21 Range/Units 06:52 Chloride 110 H (98-107) mmol/L Glucose 155 H (74-99) mg/dL Thrombosis Risk Factor Assmnt - DVT/VTE Prophylaxis DVT/VTE Prophylaxis: Pharmacologic Prophylaxis ordered Assessment and Plan Plan: 1. Acute substernal chest pain ACS ruled out troponin x3 - EKG negative for ST-T wave changes. Cardiology evaluated the patient and believes patient's pain is likely radiating from her left. Recommend continuing ibuprofen for pain control 2. Supraventricular tachycardia currently on Toprol 50 mg daily 3. Chronic nicotine abuse smoking cessation discussed with patient. 4. DVT prophylaxis with increase ambulation 5. GI prophylaxis with omeprazole 40 mg p.o. daily. 6. CODE STATUS full code
[2021-03-25] MEDS ORDERED: METOPROLOL SUCCINATE (ER) 50 MG TAB.ER.24H PO SCH (09:00)
[2021-03-25] MEDS ORDERED: ASPIRIN 325 MG TAB PO SCH (09:00)
== END 2021-03-24 15:24 | disposition home or self-care (01) ==
LOC: EC 06:28 → 1SOBS 08:12 → 6NMEDSUR 10:40
PROVIDERS: ADMIT Internal Medicine; ATTEND Internal Medicine
DX: R07.2 Precordial pain (principal); M25.511 Pain in right shoulder; M94.0 Chondrocostal junction syndrome [Tietze]; M50.30 Other cervical disc degeneration, unspecified cervical region; I47.1 Supraventricular tachycardia; F17.210 Nicotine dependence, cigarettes, uncomplicated; K21.9 Gastro-esophageal reflux disease without esophagitis; K58.9 Irritable bowel syndrome, unspecified; F41.9 Anxiety disorder, unspecified; M19.90 Unspecified osteoarthritis, unspecified site; Z79.899 Other long term (current) drug therapy; Z88.1 Allergy status to other antibiotic agents; Z88.8 Allergy status to other drugs, medicaments and biological substances; Z90.710 Acquired absence of both cervix and uterus; Z80.1 Family history of malignant neoplasm of trachea, bronchus and lung; Z83.3 Family history of diabetes mellitus; Z82.49 Family history of ischemic heart disease and other diseases of the circulatory system; Z82.0 Family history of epilepsy and other diseases of the nervous system; Z81.8 Family history of other mental and behavioral disorders; Z83.49 Family history of other endocrine, nutritional and metabolic diseases; Z82.61 Family history of arthritis
CPT/HCPCS: 93005 ×2; 96374; 99285; 36415; 85379; 80053; 83690; 83735; 84484; 85025; 85610; 85730; 71046; G0378 ×2; S4990; C9113; 96360; 96372

== ENCOUNTER → 2023-12-16 | Outpatient (CLI) | payer BC ==
--- NOTE | 2023-12-17 05:51 | CTL ---
EXAMINATION TYPE: CT Low Dose Lung DATE OF EXAM ORDERED: 12/16/2023 HISTORY: Lung cancer screening CT DLP: 85.[address] CTDI: 2.1 mGy Automated exposure control for dose reduction was used. SCREENING VISIT: Yes COMPARISON: CT Thorax w/o cont 11/20/2015 TECHNIQUE: Low dose computed tomography scan was performed through the chest at 1 mm thick sections a nd reconstructed images in multiple planes at 1 mm and [address] DIAGNOSTIC QUALITY: Satisfactory FINDINGS: LUNG NODULES: Stable 4.4 mm RML solid pulmonary nodule (page 149 of 354). New right apical 11 mm groundglass nodule (page 71 of 354). New right apical 6 mm groundglass nodule (page 97 of 354). New right apical 6 mm groundglass nodule (page 81 of 354). LUNGS: COPD: Severity: None Fibrosis: Severity: None Lymph nodes: No greater than 1 cm short axis lymph nodes. Other findings: Airways are patent and unremarkable, other than tiny scattered findings consistent wi th secretions. RIGHT PLEURAL SPACE: Effusion: None Calcification: None Thickening: None Pneumothorax: None LEFT PLEURAL SPACE: Effusion: None Calcification: None Thickening: None Pneumothorax: None HEART: Heart Size: Normal Coronary Calcification: None Pericardial Effusion: None OTHER FINDINGS: Upper abdomen: None Bony thorax: None Supraclavicular region: None Other: 7 mm right breast axillary tail nodule noted (image 19 of 71). Recommend mammographic correlat ion. IMPRESSION: CT LUNG RAD CATEGORY 2/S; RECOMMEND 12 MONTH FOLLOW-UP LDCT. S-modifier: Sub-cm nodule in the right breast axillary tail.
== END | disposition home or self-care (01) ==
LOC: RADCTMAIN 17:21
PROVIDERS: ATTEND Family Medicine
DX: Z12.2 Encounter for screening for malignant neoplasm of respiratory organs (principal); N63.31 Unspecified lump in axillary tail of the right breast; F17.210 Nicotine dependence, cigarettes, uncomplicated
CPT/HCPCS: 71271

== ENCOUNTER → 2023-12-30 | Outpatient (CLI) | payer BC ==
--- NOTE | 2023-12-30 14:00 | FL ---
EXAMINATION TYPE: FL barium swallow DATE OF EXAM: 12/30/2023 CLINICAL INDICATION: 58-year-old female R13.10, dysphagia mainly with solid foods. COMPARISON: None Total Fluoroscopy Time: 1 minute 40 seconds [id number] 46 images obtained. FINDINGS: The swallowing mechanism is normal. There is mild thickening of the cricopharyngeus muscle. Otherwise , the hypopharyngeal anatomy is preserved. The thoracic portion shows normal course and motility but is mildly patulous. The mucosa is normal and no persistent filling defect is encountered. There is a small sliding hiatal hernia and severe recurrent bouts of gastroesophageal reflux when the patient is brought supine/prone. IMPRESSION: 1. Small sliding hiatal hernia with severe recurrent bouts of gastroesophageal reflux. 2. The esophagus is mildly patulous. This may reflect chronic reflux. 3. Mild thickening of the CP muscle may also be secondary to chronic reflux.
== END | disposition home or self-care (01) ==
LOC: RADUSWWP 08:25
PROVIDERS: ATTEND Otolaryngology
DX: K44.9 Diaphragmatic hernia without obstruction or gangrene (principal); R13.10 Dysphagia, unspecified; K21.9 Gastro-esophageal reflux disease without esophagitis; J39.2 Other diseases of pharynx
CPT/HCPCS: 74220